=== PATIENT | female | born 1975 ===

== ENCOUNTER 2019-05-07 16:37 | Outpatient (REF) | payer MEDICARE, MEDICAID, SELFPAY ==
[2019-05-07 21:22] LABS: Abs Immature Grans 0.03 k/cumm (0.0-0.09); Absolute Basophil Count 0.01 k/cumm (0.0-0.2); Absolute Eosinophil Count 0.06 k/cumm (0.0-0.7); Absolute Lymphocyte Count 2.67 k/cumm (1.2-3.4); Absolute Monocyte Count 0.63 k/cumm (0.11-0.7); Absolute Neutrophil Count 5.34 k/cumm (1.2-6.7); Basophils % 0.1; Eosinophils % 0.7; HCT 41.8 % (36.0-46.0); HGB 13.9 g/dL (12.0-15.5); Immature Grans % 0.3; Lymphocytes % 30.5; Mean Corp. HGB Concentration 33.3 g/dL (32.0-36.0); Mean Corpuscular Hemoglobin 27.4 pg (27.0-33.0); Mean Corpuscular Volume 82.4 fL (80-95); Mean Platelet Volume 9.1 fL (8.0-11.0); Monocytes % 7.2; Neutrophils % 61.2; Platelet Count 266 x1000/uL (130-400); RBC 5.07 m/cumm (4.00-5.20); RBC Distribution Width 14.3 % (11.7-14.6); White Blood Cell Count 8.74 k/cumm (4.4-10.8)
[2019-05-07 21:29] LABS: ALT 18 U/L (14-59); AST 13 U/L (15-37); Albumin 4.1 g/dL (3.4-5.0); Alkaline Phosphatase 85 U/L (46-116); Anion Gap 10.1 mmol/L (3-11); BUN 9 mg/dL (7-18); Bilirubin, Direct 0.13 mg/dL (0.00-0.20); Bilirubin, Total 0.4 mg/dL (0.2-1.0); CO2 27.9 mmol/L (21.0-32.0); CREATININE 0.99 mg/dL (0.55-1.02); Calcium 8.3 mg/dL (8.5-10.1); Chloride 101 mmol/L (98-107); Glucose 97 mg/dL (74-106); Potassium 3.7 mmol/L (3.5-5.1); Sodium 139 mmol/L (136-145); Total Protein 7.4 g/dL (6.4-8.2)
[2019-05-07 21:35] LABS: GGT 28 U/L (5-55)
[2019-05-09 12:37] LABS: Hepatitis B Surface Ag Negative (Negative)
[2019-05-09 13:06] LABS: HIV-1/2 Ag & Ab Screen Negative (Negative)
[2019-05-09 13:09] LABS: Hepatitis C Ab w Rflx HCV PCR Reactive (Negative)
[2019-05-09 13:10] LABS: Hep A Total Ab w Rflx IgM Negative (Negative)
[2019-05-10 16:16] LABS: HCV RNA Detection Quantitative 0 IU/mL (Undetected)
== END 2019-05-07 16:57 ==
LOC: NCHCN 16:37
PROVIDERS: PCP Internal Medicine; Visit Provider Internal Medicine
DX: F11.20 Opioid dependence, uncomplicated (principal); Z11.4 Encounter for screening for human immunodeficiency virus [HIV]; Z11.59 Encounter for screening for other viral diseases
CPT/HCPCS: 80053; 80076; 86709; 86803; 87340; 87389; 82977; 85025; 87522

== ENCOUNTER 2020-03-17 19:23 | Outpatient (REF) | payer MEDICARE, MEDICAID, SELFPAY ==
[2020-03-17 19:50] LABS: ALT 23 U/L (14-59); AST 17 U/L (15-37); Albumin 3.9 g/dL (3.4-5.0); Alkaline Phosphatase 73 U/L (46-116); Anion Gap 9.3 mmol/L (3-11); BUN 7 mg/dL (7-18); Bilirubin, Total 0.5 mg/dL (0.2-1.0); CO2 25.7 mmol/L (21.0-32.0); CREATININE 0.94 mg/dL (0.55-1.02); Calcium 8.3 mg/dL (8.5-10.1); Chloride 103 mmol/L (98-107); Glucose 96 mg/dL (74-106); Sodium 138 mmol/L (136-145); Total Protein 6.8 g/dL (6.4-8.2)
[2020-03-25 15:12] LABS: HCV RNA Qualitative Undetected (Undetected)
== END 2020-03-17 19:43 ==
LOC: NCHCN 19:23
PROVIDERS: PCP Internal Medicine; Visit Provider Nurse Practitioner
DX: F11.20 Opioid dependence, uncomplicated (principal)
CPT/HCPCS: 80053; 87522

== ENCOUNTER 2020-04-15 14:44 | Outpatient (REF) | payer MEDICARE, MEDICAID, SELFPAY ==
--- NOTE | 2020-04-15 13:40 | PAPFT_PTH ---
PATIENT: Yahaira Santiago LOC: [facility] U#:[id number] AGE/SX: 45/F ROOM: RE04/15/[address]: Mara Matos : 1975 BED: DIS: 04/15/2020 SPEC #: [id number] RECD: 04/15/20 18:27 STATUS: ANDRES REQ #: [id number] KETAN: 04/15/20 13:[address]: Mara Matos DEPT: [facility], 1928–1983 Cytology RECD BY: Aleena lCemente ENTERED: 04/15/20 18:27 SP TYPE: PAPFT OTHR DR: Kody Rios Tissues: 1 - CX/ENDOCX FOR PAP SMEARS Procedures: PAP THIN PREP/[facility] Screening Comments: [id number] (UNSATISFACTORY FOR EVALUATION)
== END 2020-04-15 15:04 ==
LOC: NCHCN 14:44
PROVIDERS: PCP Internal Medicine; Visit Provider Physician Assistant
DX: R87.615 Unsatisfactory cytologic smear of cervix (principal)
CPT/HCPCS: 88142

== ENCOUNTER 2020-07-07 16:27 | Outpatient (REF) | payer MEDICARE, MEDICAID, SELFPAY ==
[2020-07-09 14:04] LABS: Chlamydia Result Negative (Negative); GC Result Negative (Negative)
== END 2020-07-07 16:28 | disposition home or self-care (01) ==
LOC: NCHCN 16:27
PROVIDERS: PCP Internal Medicine; Visit Provider Internal Medicine
DX: R10.9 Unspecified abdominal pain (principal)
CPT/HCPCS: 87491; 87591

== ENCOUNTER 2021-07-15 16:50 | Outpatient (REF) | payer MEDICARE, MEDICAID, SELFPAY ==
[2021-07-15 20:53] LABS: ALT 62 U/L (14-59); AST 44 U/L (15-37); GGT 30 U/L (5-55)
[2021-07-20 12:35] LABS: Hepatitis C Ab w Rflx HCV PCR Reactive (Negative)
[2021-07-30 08:38] LABS: HCV RNA Qualitative Undetected (Undetected)
== END 2021-07-15 16:51 | disposition home or self-care (01) ==
LOC: LBN 16:50
PROVIDERS: PCP Internal Medicine; Visit Provider Internal Medicine
DX: F10.20 Alcohol dependence, uncomplicated (principal)
CPT/HCPCS: 86803; 87522; 82977; 84450; 84460